=== PATIENT | female | born 1995 | race Caucasian/White ===

== ENCOUNTER → 2023-06-21 16:29 | Outpatient (CLI) | payer OTHER, SELFPAY ==
[2023-06-21 17:41] LABS: Add Manual Diff / Slide Review NO; Basophils Absolute Auto 0 /uL (0-100); Basophils Percent Auto 0.4 % (0-2); Eosinophils Absolute Auto 100 /uL (0-450); Eosinophils Percent Auto 0.7 % (2-4); Hematocrit 34.7 % (36-46); Lymphocytes Absolute Auto 1100 /uL (1100-4500); Lymphocytes Percent Auto 9.5 % (25-40); Mean Corpuscular HGB Conc 34.6 % (30-36); Mean Corpuscular Hemoglobin 33.5 PG (26-34); Mean Corpuscular Volume 96.9 fL (80-100); Monocytes Absolute Auto 600 /uL (0-900); Monocytes Percent Auto 5.5 % (3-14); Neutrophils Absolute Auto 9900 /uL (1500-7000); Neutrophils Percent Auto 83.9 % (50-75); Platelet Count 256 X10^3/uL (150-400); Red Blood Cell Count 3.59 X10^6/uL (4.0-5.2); White Blood Cell Count 11.8 X10^3/uL (4.5-11.0)
[2023-06-21 18:33] LABS: Hepatitis B Surface Antigen NEGATIVE s/c (NEGATIVE)
[2023-06-21 18:50] LABS: HIV 1 & 2 Ab/Ag 4th Gen Combo NEGATIVE (NEGATIVE); Hep C Virus Ab w/Reflex Quant NEGATIVE s/c (NEGATIVE)
[2023-06-22 06:44] LABS: RPR Screen Non Reactive (Non Reactive)
[2023-06-22 10:04] LABS: Varicella IgG Antibody 1944 index (Immune >165)
== END ==
PROVIDERS: Obstetrics & Gynecology; Referring Provider Specialist; Visit Provider Specialist
DX: Z34.01 Encounter for supervision of normal first pregnancy, first trimester (principal)
CPT/HCPCS: 36415; 80055; 86787; 86803; 86850; 86900; 86901; 87389

== ENCOUNTER → 2023-08-10 14:54 | Outpatient (CLI) | payer OTHER, SELFPAY ==
[2023-08-14 19:54] LABS: AFP Value 42.5 ng/mL (.); Gest Age on Col Date 18.7 weeks (.); Insulin Dep Diabetes No (.); OSBR Risk 1IN 10000 (.); Results Report (.); Test Results *Screen Negative* (.)
== END ==
PROVIDERS: PCP General Practice; Referring Provider Obstetrics & Gynecology; Visit Provider Obstetrics & Gynecology
DX: Z34.02 Encounter for supervision of normal first pregnancy, second trimester (principal); Z3A.18 18 weeks gestation of pregnancy
CPT/HCPCS: 36415; 82105

== ENCOUNTER → 2023-09-07 12:22 | Outpatient (CLI) | payer OTHER, SELFPAY ==
--- NOTE | 2023-09-07 12:23 | DI.US.S_ITS ---
PROCEDURE: US OB >= 14 WEEKS FETUS INDICATIONS: 20 week anatomy scan OUTSIDE/PRIOR DATING DATA: Last menstrual period (LMP): 04/01/2023. LMP-based estimated date of delivery (BENTLEY): 01/06/2024. First dating scan (date and location): 06/21/2023. Estimated date of delivery (BENTLEY) from first dating scan: 01/04/2023. The calculations are made using the clinical BENTLEY of 01/06/2024. TECHNIQUE: Real-time scanning was performed of the fetus, with image documentation and biometric measurements. COMPARISON: None. FINDINGS: General: A single living intrauterine gestation is present. Presentation: Breech. Placenta: Placental position is anterior, without previa. Amniotic fluid index: 14.3 cm, normal range is 5-24 cm. Single deepest vertical pocket is 4.2 cm. heart rate: 140 beats per minute. Maternal cervical canal: 5.7 cm long. Normal lower limit is 2.5 cm. biometrics: Biparietal diameter: 5.6 cm, 23 weeks 0 days Head circumference: 20.1 cm, 22 weeks 5 days Abdominal circumference: 18.3 cm, 23 weeks 1 day Femur length: 4.0 cm, 22 weeks 5 days Clinically estimated gestational age: 22 weeks 5 days Composite gestational age from present scan: 22 weeks 6 days Estimated weight and percentile: 548 g, 54th percentile Anatomic survey: Neuro: Ventricles are non-dilated at less than 10 mm. Cisterna magna is normal at 3-11 mm. Cerebellum is normal in size and morphology. Nuchal skin fold: Normal at less than 6 mm between 14-21 weeks gestational age. Face: Nose and lips, facial profile are normal. Spine: No evidence for spina bifida. Heart: 4-chambered heart is present, with normal ventricular outflow tracts. Diaphragm: Diaphragm is intact. Stomach: Left-sided stomach is present. Kidneys: No hydronephrosis. Normal is less than 5 mm in 2nd trimester, less than 7 mm in 3rd trimester. Cord: 3-vessel cord has orthotopic insertion. Bladder: Normal in size. Extremities: All 4 extremities identified. IMPRESSION: 1. Riley living intrauterine at 22 weeks 6 days based on today's ultrasound. Fetus is in the 54th percentile for weight. 2. Normal placenta and amniotic fluid. 3. Normal and complete anatomic survey. We strive to produce accurate, complete, and clear reports of imaging services. To assist us in improving patient care, this report was composed using standard report templates and voice recognition software. Therefore, it may contain abnormal punctuation, insertions and/or omissions. Occasional wrong-word or sound-alike substitutions may occur. Though we review the report and make efforts to correct it, we do recommend that the report be read carefully in proper context to recognize any text inaccuracies. Dictated by: Serjio Daniels M.D. on 09/07/2023 at 14:44 Approved by: Serjio Daniels M.D. on 09/07/2023 at 14:49
== END ==
PROVIDERS: PCP General Practice; Referring Provider Obstetrics & Gynecology; Visit Provider Obstetrics & Gynecology
DX: Z34.02 Encounter for supervision of normal first pregnancy, second trimester (principal); Z3A.22 22 weeks gestation of pregnancy
CPT/HCPCS: 76811

== ENCOUNTER → 2023-10-05 15:22 | Outpatient (CLI) | payer OTHER, SELFPAY ==
[2023-10-05 17:12] LABS: Hematocrit 34.6 % (36-46); Hemoglobin 12.1 g/dL (12.0-16.0)
[2023-10-05 17:38] LABS: GTT (PREG) 1 Hour PP 50gm Dose 141 mg/dL (76-139)
== END ==
PROVIDERS: PCP General Practice; Referring Provider Obstetrics & Gynecology; Visit Provider Obstetrics & Gynecology
DX: Z34.01 Encounter for supervision of normal first pregnancy, first trimester (principal); Z3A.26 26 weeks gestation of pregnancy
CPT/HCPCS: 36415; 82950; 85014; 85018

== ENCOUNTER → 2023-10-12 08:01 | Outpatient (CLI) | payer OTHER, SELFPAY ==
[2023-10-12 10:00] LABS: Glucose Fasting Gestational 71 mg/dL (76-95)
[2023-10-12 10:44] LABS: Glucose 1 Hour Gest 92 mg/dL (76-180)
[2023-10-12 11:53] LABS: Glucose 2 Hour Gest 102 mg/dL (76-155)
[2023-10-12 13:34] LABS: Glucose Tol Interp,Gestational INTERPRETATION
[2023-10-12 13:49] LABS: Glucose 3 Hour Gest 63 mg/dL (76-140)
== END ==
PROVIDERS: PCP General Practice; Referring Provider Obstetrics & Gynecology; Visit Provider Obstetrics & Gynecology
DX: Z34.02 Encounter for supervision of normal first pregnancy, second trimester (principal); R73.09 Other abnormal glucose
CPT/HCPCS: 36415; 82951; 82952

== ENCOUNTER → 2023-12-15 15:55 | Outpatient (CLI) | payer OTHER, SELFPAY ==
[2023-12-16 15:45] LABS: Strep Grp B PCR POS for Grp B Strep
== END ==
PROVIDERS: PCP General Practice; Visit Provider Obstetrics & Gynecology
DX: Z34.01 Encounter for supervision of normal first pregnancy, first trimester (principal); Z3A.36 36 weeks gestation of pregnancy
CPT/HCPCS: 87186; 87653

== ENCOUNTER 2024-01-06 09:38 | Outpatient (CLI) | payer OTHER, SELFPAY ==
--- NOTE | 2024-01-06 10:24 | PM.OBTRLD ---
Visit Information Visit Information Date of evaluation: 01/06/24 Primary OB Provider: Emperatriz Wilson Reason for Evaluation: Yes non-stress test non-stress test reason: other (40 weeks' gestation) [facility] Medical History (Updated 01/06/24 @ 10:25 by Emperatriz Wilson MD) Gastric ulcer (~2020) Gallstones (~2020) Surgical History (Updated 06/19/23 @ 21:57 by Kristine Smiht) Anesthesia [place] teeth extracted History of cholecystectomy (~2020) Family History (Updated 06/19/23 @ 21:59 by Kristine Smith) Grandfather Diabetes mellitus Hypertension Family/Other Arthritis Grandfather Respiratory disease Grandmother Diabetes mellitus Hyperlipidemia Hypertension Social History marital status: number of children: 0 household members: spouse lives independently: No caregiver/support person: No housing: house pets and animals: No education level: college (bachelor's degree) 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) current occupational exposures/hazards: No (all Hazmat duties stopped) special sabina needs: No travel history: recent (domestic only) seatbelt use: always helmet use: Yes water heater temp set < 120 deg: Yes working smoke detector in home: Yes fire extinguisher in home: Yes carbon monox detector in home: Yes firearms in home: Yes firearms unloaded and locked: Yes do you feel safe at home: Yes Smoking Status: Never smoker second hand exposure: No alcohol intake: former substance use type: does not use during the past year weight has: remained stable well-balanced diet: daily or most days daily servings fruits/ve or more times/day caffeine: Yes (1 cup coffee/tea in AM) Type(s) of exercise: walking, bicycling and running frequency: 5-6 times per week duration: 45-60 minutes/day Evaluation Evaluation Baseline heart rate: 130 Variability: Moderate (11-25) monitor accelerations: Present Monitor Decelerations: Absent Contraction Frequency (minutes): 0 Category of Tracing: Reactive Status: Category l Diagnosis, Plan/Disposition Final Diagnosis (1) Supervision of normal first in third trimester: Status: Acute (2) 40 weeks gestation of : Status: Acute Plan/Disposition Plan: Reactive nonstress test. Repeat nonstress test twice weekly. The patient has a follow-up appointment in 1 week in the office. OB Disposition: home
== END 2024-01-06 10:26 | disposition home or self-care (01) ==
LOC: LABOR 10:25 → OB 01-10 06:06
PROVIDERS: PCP General Practice; Referring Provider Specialist; Visit Provider Specialist
DX: O48.0 Post-term pregnancy (principal); Z3A.40 40 weeks gestation of pregnancy
CPT/HCPCS: 59025; G0378; G0379

== ENCOUNTER 2024-01-10 08:46 | Outpatient (CLI) | payer OTHER, SELFPAY | END 2024-01-10 09:40 | disposition home or self-care (01) | LOC: OB 01-12 08:15 | PROVIDERS: PCP General Practice; Referring Provider Specialist; Visit Provider Specialist | DX: O48.0 Post-term pregnancy (principal); Z3A.40 40 weeks gestation of pregnancy | CPT/HCPCS: 59025; G0378; G0379 ==

== ENCOUNTER 2024-01-13 09:09 | Outpatient (CLI) | payer OTHER, SELFPAY ==
--- NOTE | 2024-01-13 09:43 | PM.OBTRLD ---
Visit Information Visit Information Date of evaluation: 01/13/24 Primary OB Provider: Teagan Lozano On-call OB Provider: Emperatriz Wilson Reason for Evaluation: Yes non-stress test non-stress test reason: other (Postdates) Comments/Additional reasons for admission: 41 weeks [facility] Medical History (Updated 01/13/24 @ 09:45 by Emperatriz Wilson MD) Gastric ulcer (~2020) Gallstones (~2020) Surgical History (Updated 06/19/23 @ 21:57 by Kristine Smith) Anesthesia [place] teeth extracted History of cholecystectomy (~2020) Family History (Updated 06/19/23 @ 21:59 by Kristine Smith) Grandfather Diabetes mellitus Hypertension Family/Other Arthritis Grandfather Respiratory disease Grandmother Diabetes mellitus Hyperlipidemia Hypertension Social History marital status: number of children: 0 household members: spouse lives independently: No caregiver/support person: No housing: house pets and animals: No education level: college (bachelor's degree) 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) current occupational exposures/hazards: No (all Hazmat duties stopped) special sabina needs: No travel history: recent (domestic only) seatbelt use: always helmet use: Yes water heater temp set < 120 deg: Yes working smoke detector in home: Yes fire extinguisher in home: Yes carbon monox detector in home: Yes firearms in home: Yes firearms unloaded and locked: Yes do you feel safe at home: Yes Smoking Status: Never smoker second hand exposure: No alcohol intake: former substance use type: does not use during the past year weight has: remained stable well-balanced diet: daily or most days daily servings fruits/ve or more times/day caffeine: Yes (1 cup coffee/tea in AM) Type(s) of exercise: walking, bicycling and running frequency: 5-6 times per week duration: 45-60 minutes/day Evaluation Evaluation Baseline heart rate: 140 Variability: Moderate (11-25) monitor accelerations: Present Monitor Decelerations: Absent Contraction Frequency (minutes): 5 Uterine Contraction Intensity: Mild Category of Tracing: Reactive Status: Category l Diagnosis, Plan/Disposition Final Diagnosis (1) 41 weeks gestation of : Status: Acute Plan/Disposition Plan: Patient to come to the office for further evaluation. Scheduled for induction on 01/18 if not delivered. OB Disposition: home
== END 2024-01-13 09:47 | disposition home or self-care (01) ==
LOC: OB 01-17 09:29
PROVIDERS: PCP General Practice; Referring Provider Specialist; Visit Provider Specialist
DX: O48.0 Post-term pregnancy (principal); Z3A.41 41 weeks gestation of pregnancy
CPT/HCPCS: 59025; G0378; G0379

== ENCOUNTER 2024-01-18 01:08 | Inpatient (IN) | payer OTHER, SELFPAY ==
[2024-01-18 02:11] VITALS: BP 123/69
[2024-01-18] MEDS: LACTATED RINGERS 1,000 ML 100 ML IV (02:52)
[2024-01-18] MEDS: CEFAZOLIN VIAL 1 GM in SODIUM CHLORIDE 0.9% 100 ML IV (02:53)
[2024-01-18 03:01] LABS: Add Manual Diff / Slide Review NO; Basophils Absolute Auto 0 /uL (0-100); Basophils Percent Auto 0.3 % (0-2); Eosinophils Absolute Auto 0 /uL (0-450); Eosinophils Percent Auto 0.2 % (2-4); Hematocrit 37.7 % (36-46); Hemoglobin 13.1 g/dL (12.0-16.0); Lymphocytes Absolute Auto 900 /uL (1100-4500); Lymphocytes Percent Auto 6.6 % (25-40); Mean Corpuscular HGB Conc 34.7 % (30-36); Mean Corpuscular Hemoglobin 33.4 PG (26-34); Mean Corpuscular Volume 96.4 fL (80-100); Monocytes Absolute Auto 700 /uL (0-900); Monocytes Percent Auto 5.1 % (3-14); Neutrophils Absolute Auto 11400 /uL (1500-7000); Neutrophils Percent Auto 87.8 % (50-75); Platelet Count 212 X10^3/uL (150-400); Red Blood Cell Count 3.91 X10^6/uL (4.0-5.2)
--- NOTE | 2024-01-18 08:01 | P.HPOB_ITS ---
OB HPI Date/Time Date of admission: 01/18/24 Date Patient Seen: 01/18/24 Time Patient Seen: 07:00 History of Present Condition Chief complaint: LABOR : 1 Narrative: Mone Jj is a 28 year old female G1 at 41w5d D=1st trimester dating who presents to L&D in active late-term labor. Pt states onset of contractions approximately 1500 01/16. Denies VB, LOF, dysuria. RN DAISYE 5/C/-2, known GBS+. Patient had regular PNC throughout , low-risk genetic screening, infectious serologies negative, elevated 1h OGTT with subsequent normal 3h. History of Present care: good care Dating criteria: LMP confirmed by 1st trimester US Ultrasounds: normal mid trimester US Obstetrical complications: none Medical complications: none Preadmission Labs Blood type: A (+) positive -: Antibody screen: negative, Cystic fibrosis screen: unknown, GBS status: unknown, HBsAG: negative, HIV: negative, HSV 1: unknown, HSV 2: unknown and RPR/VDLR: negative -: Chlamydia screen: not detected and Gonorrhea screen: not detected -: Rubella: immune and Varicella: immune PAP: Normal Quad screen: Normal Cell-free DNA: not done 1 hr GTT: 141 Evaluation Evaluation Baseline heart rate: 140 Variability: Average (6-10) monitor accelerations: Present Monitor Decelerations: Absent Contraction Frequency (minutes): 5 Uterine Contraction Intensity: Moderate Category of Tracing: Reactive Status: Category l Dilation (cm): 5 Effacement (%): 100 Dilation: >/=5 cm Effacement: >/=80% station: -2 Position of cervix: mid Consistency: soft Medina score: 10 [facility] Medical History (Updated 01/13/24 @ 09:45 by Emperatriz Wilson MD) Gastric ulcer (~2020) Gallstones (~2020) Surgical History (Updated 06/19/23 @ 21:57 by Kristine Smith) Anesthesia [place] teeth extracted History of cholecystectomy (~2020) Family History (Updated 06/19/23 @ 21:59 by Kristine Smith) Grandfather Diabetes mellitus Hypertension Family/Other Arthritis Grandfather Respiratory disease Grandmother Diabetes mellitus Hyperlipidemia Hypertension Social History marital status: number of children: 0 household members: spouse lives independently: No caregiver/support person: No housing: house pets and animals: No education level: college (bachelor's degree) 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) current occupational exposures/hazards: No (all Hazmat duties stopped) special sabina needs: No travel history: recent (domestic only) seatbelt use: always helmet use: Yes water heater temp set < 120 deg: Yes working smoke detector in home: Yes fire extinguisher in home: Yes carbon monox detector in home: Yes firearms in home: Yes firearms unloaded and locked: Yes do you feel safe at home: Yes Smoking Status: Never smoker second hand exposure: No alcohol intake: former substance use type: does not use during the past year weight has: remained stable well-balanced diet: daily or most days daily servings fruits/ve or more times/day caffeine: Yes (1 cup coffee/tea in AM) Type(s) of exercise: walking, bicycling and running frequency: 5-6 times per week duration: 45-60 minutes/day Meds Home Medications and Allergies Home Medications Medication Instructions Recorded Confirmed Type vitamin-ferrous sulfate See Rx Instructions .Route .COMPLEX 06/11/23 01/18/24 History 27 mg iron-folic acid 0.8 mg tablet Double Electric Breast Pump See Rx Instructions .Route 09/07/23 01/18/24 Rx .COMPLEX #1 ea Allergies Allergy/AdvReac Type Severity Reaction Status Date / Time Penicillins Allergy Intermediate Hives Verified 01/13/24 10:07 Review of Systems Review of Systems ROS: Yes All systems reviewed with the patient and are negative except as otherwise documented OB Exam Vital signs Blood Pressure: 123/69 Pulse Rate: 78 Respiratory Rate: 16 Temperature: 35.9 F Narrative Exam Narrative: Pt resting on birthing ball, hands and knees position; breathing through contractions, coping well HENMT Head: normal to inspection Resp Effort & Inspection: normal respiratory effort Cardio Rate: regular rate Rhythm: regular rhythm Extremities Lower extremity: Yes normal to inspection GI Inspection: normal to inspection Other: gravid abdomen Other: melody cephalic, 7.5-8# SVE deferred in shared decision making with patient Objective Labs 01/18/24 02:35 Labs: Laboratory Results - last 24 hr 01/18/24 02:35 WBC 13.0 H RBC 3.91 L Hgb 13.1 Hct 37.7 MCV 96.4 MCH 33.4 MCHC 34.7 RDW 13.0 Plt Count 212 Neut % (Auto) 87.8 H Lymph % (Auto) 6.6 L [place] % (Auto) 5.1 Eos % (Auto) 0.2 L Baso % (Auto) 0.3 Neut # (Auto) 09221 H Lymph # (Auto) 900 L [place] # (Auto) 700 Eos # (Auto) 0 Baso # (Auto) 0 Blood Type A Positive Antibody Screen Negative Assessment and Plan Assessment and Plan Assessment and Plan narrative: 28yo G1 at 41w5d D=1st trimester dating, advanced latent late-term labor Advanced latent labor at late term Cat 1 tracing, maternal VSS/afebrile CBC, T&S on admission GBS+, known PCN allergy (per pt severe hives in infancy) > clinda-resistant per culture sensitivities Pt initially received single dose IV ancef 1g on admission, transitioned this AM to vancomycin for GBS ppx per ACOG guidelines given severity of historical allergy No adverse side effects from single dose ancef Plan interval SVE 2h, anticipate further augmentation with pitocin at that time if no interval change PNL reviewed, noted elevated 1h OGTT with normal 3h OGTT, higher risk LGA in setting of late term gestation; remainder wnl Ok for intermittent monitoring prior to augmentation, CEFM thereafter per protocol Anticipate Patient is consented for vaginal, vaginal operative and delivery. She additionally consents to transfusion of blood products in [facility] of hemorrhagic emergency. Time Spent with Patient Total time spent with greater than 50% in coordination of care (as documented) at patient's floor/unit and/or counseling patient:: 15-24 minutes
[2024-01-18 09:14] VITALS: BP 123/69; PULSE 78; RESP 16; TEMP 2.2; TEMP 35.9
--- NOTE | 2024-01-18 10:02 | PM.OBPNLAB ---
Date/Time Date Patient Seen: 01/18/24 Time Patient Seen: 10:02 Pain Control Pain control: tolerating well Pelvic Exam Dilation (cm): 6 (per RN exam) Effacement (%): 100 station: -2 Amniotic membrane status: Intact Contractions Contractions on admission: irregular Contraction pattern: Irregular Contraction intensity: Moderate Status status: Category l Heart Rate Baseline: 130 Monitor Accelerations: Present Monitor Decelerations: Absent Monitor Variability: Moderate Assessment and Plan Assessment: active labor Plan: begin patient augmentation Comments: 28yo at 41+5wks admitted in labor, with minimal progress overnight. Discussed with pt starting pitocin for augmentation, which pt is amenable to. -will start pitocin at this time -pt desires to go without pain management, coping well thus far -anticipate
[2024-01-18] MEDS: VANCOMYCIN 1,250 MG in SODIUM CHLORIDE 0.9% 250 ML 250 MG IV ×2 (10:27→18:38)
[2024-01-18] MEDS: OXYTOCIN PREMIX 30 UNIT/500 ML PLAST..BAG IV (10:27)
[2024-01-18 12:54] LABS: Estimated Glomerular Filt Rate > 60 mL/min (>60)
--- NOTE | 2024-01-18 14:32 | PM.OBPNLAB ---
Date/Time Date Patient Seen: 01/18/24 Time Patient Seen: 14:32 Pain Control Pain control: tolerating well Pelvic Exam Dilation (cm): 6 Effacement (%): 80 station: 0 Amniotic membrane status: Ruptured Contractions Contraction pattern: Irregular Contraction intensity: Moderate Status status: Category ll Heart Rate Baseline: 130 Monitor Accelerations: Present Monitor Decelerations: Episodic and Late Monitor Variability: Moderate Assessment and Plan Assessment: active labor Plan: begin patient augmentation Comments: 28yo at 41+5wks undergoing labor management. Pt SROM'd at 1230, and was assessed by RN as 8/100/0, at which time the pitocin was stopped. I was then called and told the patient was anterior lip with an urge to push, thus went to assess the patient. Per my exam above, pt is still 6cm dilated, 80% effaced, zero station. -will restart pitocin at this time, and titrate to effect -repeat SVE in 2hrs from pitocin start; if unchanged, would recommend IUPC placement
--- NOTE | 2024-01-18 15:45 | PM.AN.REGBLK ---
[facility] <Kim Quiñones MD - Last Filed: 01/18/24 15:49> Pre-procedure Procedure: Continuous Lumbar Epidural for L&D Attending OB provider: Sulema London PMH/PROSPER narrative: 40 wk in active labor requesting labor analgesia. ASA Class: II Labs: Hct 37.7 % (36-46) 01/18/24 02:35 Plt Count 212 X10^3/uL (150-400) 01/18/24 02:35 Medications: Current Medications Generic Name Dose Route Start Last Admin Trade Name Freq PRN Reason Stop Dose Admin Calcium Carbonate 1,000 mg 01/18/24 02:11 Calcium Carbonate 500 Mg Tab PO Q4HR PRN Dyspepsia Carboprost Tromethamine 250 mcg 01/18/24 02:12 Carboprost 250 Mcg/Ml Ampul IM Q90M PRN Bleeding Diphenhydramine HCl 25 mg 01/18/24 15:45 Diphenhydramine 50 Mg/Ml Vial IV 01/19/24 15:46 Q30MIN HARIKA Fentanyl 100 mcg 01/18/24 02:11 Fentanyl 100 Mcg/2 Ml Inj IV Q1H PRN Pain, Severe (7-10) Tranexamic Acid 1,000 mg/ 100 mls @ 200 mls/hr 01/18/24 02:12 Sodium Chloride IV NOW PRN Bleeding Lactated Ringer's 1,000 mls @ 100 mls/hr 01/18/24 02:15 01/18/24 02:52 Lactated Ringers IV 100 mls/hr CONT HARIKA Administration Oxytocin/Lactated Ringer's 30 unit in 500 mls @ 200 mls/hr 01/18/24 02:12 Oxytocin Premix IV CONT PRN Bleeding Protocol Oxytocin/Lactated Ringer's 30 unit in 500 mls @ 2 mls/hr 01/18/24 10:00 01/18/24 10:27 Oxytocin Premix IV 2 milliunit/min TITRATE HARIKA 2 mls/hr Administration Protocol 2 MILLIUNIT/MIN Vancomycin HCl 1,250 mg/ 250 mls @ 250 mls/hr 01/18/24 18:00 Sodium Chloride IV Q8H HARIKA Sodium Chloride 1,000 mls @ 100 mls/hr 01/18/24 15:45 Normal Saline 0.9% IV 01/19/24 15:42 CONT HARIKA Lidocaine HCl 20 ml 01/18/24 02:11 Lidocaine 1% 20 Ml INJ INTRA-OP PRN Post Delivery Methylergonovine Maleate 0.2 mg 01/18/24 02:12 Methylergonovine 0.2 Mg/Ml Vial IM NOW PRN Bleeding Methylergonovine Maleate 0.2 mg 01/18/24 02:12 Methylergonovine 0.2 Mg Tablet PO Q6HR PRN Heavy Bleeding Metoclopramide HCl 10 mg 01/18/24 15:45 Metoclopramide 10 Mg/2 Ml Inj IV 01/19/24 15:46 Q30MIN REPLACED BY [facility] Misoprostol 400 mcg 01/18/24 02:12 Misoprostol 200 Mcg Tablet SL NOW PRN Bleeding Misoprostol 800 mcg 01/18/24 02:12 Misoprostol 200 Mcg Tablet ID NOW PRN Bleeding Nalbuphine HCl 5 mg 01/18/24 15:41 Nalbuphine 20 Mg/Ml Ampul IV Q6H PRN Pruritus Naloxone HCl 0.2 mg 01/18/24 02:12 Naloxone 0.4 Mg/Ml Vial IV Q2MIN PRN Opiate Reversal Naloxone HCl 0.4 mg 01/18/24 15:41 Naloxone 0.4 Mg/Ml Vial IV Q2MIN PRN Opiate Reversal Naloxone HCl 0.1 mg 01/18/24 15:41 Naloxone 0.4 Mg/Ml Vial IV 01/18/24 15:42 NOW ONE Naloxone HCl 0.1 mg 01/18/24 15:41 Naloxone 0.4 Mg/Ml Vial IV 01/18/24 15:42 NOW ONE Ondansetron HCl 4 mg 01/18/24 02:12 Ondansetron 4 Mg/2 Ml Inj IV Q4HR PRN Nausea And Vomiting Ondansetron HCl 4 mg 01/18/24 17:00 Ondansetron 4 Mg/2 Ml Inj IV 01/18/24 21:01 Q4HR REPLACED BY [facility] Oxytocin 10 unit 01/18/24 02:12 Oxytocin 10 Unit/Ml Vial IM NOW PRN Bleeding Vancomycin HCl 1 request 01/18/24 07:56 Vancomycin Per Pharmacy MISC NOW PRN Labor Induction Vancomycin HCl 1 request 01/19/24 09:30 Vancomycin Trough MISC 01/19/24 09:31 NOW ONE Allergies: Allergies Allergy/AdvReac Type Severity Reaction Status Date / Time Penicillins Allergy Intermediate Hives Verified 01/13/24 10:07 Procedure Insertion date: 01/18/24 Insertion time: 15:26 Prep/Local: 1% lidocaine (chloroprep) Interspace: L4-5 Patient position: sitting Needle: 18 gauge Hustead Loss of resistance with: saline ROSE at (cm): 5 Catheter placed at SKIN (cm): 9 Catheter in SPACE (cm): 4 Insertion: No CSF, No Blood, No Paresthesia with insertion, No Paresthesia with injection and No Test dose reaction Initial Medications TEST DOSE time: 15:27 BOLUS DOSE time: 15:32 BOLUS DOSE (mL): 10 BOLUS DOSE med: 0.125% bupivacaine with fentanyl 10 mcg/mL Infusion Initial rate (mL/hr): 10 Post-procedure Anesthesia date START: 01/18/24 Anesthesia time START: 15:25 <Arleth Emery CRNA - Last Filed: 01/19/24 08:19> Infusion Subsequent interventions: Per Dr. Quiñones, pt had ineffective relief with a bolus dose of 10cc 2% lido. In room at 1603 for ineffective epidural. Pt states 8/10 pain during contractions. Patient hemodynamically stable. Pump stopped. Catheter was removed with tip intact. Chloraprep to skin. Lido 1% (2.5mL) at approx L2/L3 interspace @ 1611. Clear ROSE @ 6.5cm. Test dose of 3cc 1.5% lido w/ 1/200k epi @ 1630. No increase in maternal HR after 3 minutes. Additional 2mL of test dose given, followed by 8mL infusate bolus. Pumped turned back on as per original settings @ 1635. Patient states very comfortable with pain 1/10 during contractions @ 1700. -Arleth Emery CRNA Post-procedure Anesthesia date END: 01/19/24 Anesthesia time END: 02:41 Post-procedure Anesthesia Assessment: Yes CV function: HR/BP stable, Yes Resp function: RR/sat/airway adequate, Yes Post-op hydration adequate, Yes Pain control adequate, Yes Nausea & vomiting absent, Yes Temperature > 36 C and Yes Mental status appropriate
[2024-01-18] MEDS: FENT 2MCG/ML BUPIV 0.125% EPI 200 MCG/100 ML PLAST..BAG 6 MCG EPIDURAL (21:25)
--- NOTE | 2024-01-18 21:45 | PM.OBPNLAB ---
Date/Time Date Patient Seen: 01/18/24 Time Patient Seen: 21:45 Pain Control Pain control: epidural Pelvic Exam Dilation (cm): 10 Effacement (%): 100 station: +1 Amniotic membrane status: Ruptured Contractions Pitocin rate (mU/min): 6 Contraction pattern: Regular Contraction intensity: Moderate Status status: Category ll Heart Rate Baseline: 140 Monitor Accelerations: Present Monitor Decelerations: Episodic and Late Monitor Variability: Moderate Assessment and Plan Assessment: active labor Plan: continuous present management Comments: 28yo at 41+5wks now completely dilated. Will start pushing efforts at this time. Anticipate .
--- NOTE | 2024-01-19 03:08 | PM.OBPRVD ---
Events: Labor Augmentation Labor & Delivery Delivery date: 01/19/24 Intrapartal Events: Prolonged 2nd Stage > 2.5 hours Delivery augmentation: pitocin Delivery monitor: external FHT and external uterine Route of delivery: vacuum extraction Indication for instrumentation: maternal exhaustion (& prolonged 2nd stage) L&D Laceration Description: Perineal - 3rd Degree (3A) Delivery repair: vicryl Estimated blood loss (mL): 500 Anesthesia Type: Epidural Complications: none Narrative: The patient progressed to C/C/+1 with pitocin augmentation and epidural anesthesia. After approximately 4.5 hours of maternal pushing efforts the infant was noted to be in the direct OA position at +3 station. HR showed moderate variability throughout this process. Due to maternal exhaustion and prolonged 2nd stage, the patient was counseled and consented for vacuum assisted delivery. Anesthesia was noted to be adequate, and the bladder was drained with a straight cath. The [place] vacuum was placed without difficulty and checks confirmed appropriate placement with no maternal tissue involved. With the next contraction, the vacuum was activated to the green section of the pressure scale, and with a single expulsive effort, the head was delivered to , after which the vacuum was released, followed by delivery of the vertex in OA position and restituted LOT. The anterior shoulder delivered with gentle downward pressure. The posterior shoulder and rest of body delivered with ease. The infant was placed on maternal abdomen, and the cord was doubly clamped and cut after a 60sec delay as the was vigorous. The placenta delivered spontaneously and was intact with a 3-vessel cord. The fundus was noted to be firm with bimanual massage and pitocin. There were no pop offs of the vacuum during delivery. Inspection of the cervix, vagina, and perineum was notable for a 3A perineal laceration. Given that she had been on vancomycin during labor, no additional antibiotics were given. Repair was performed using 2-0 Vicryl in simple interrupted sutures to reinforce the capsule of the external anal sphincter. Repair of the remaining 2nd degree tear was performed with 3-0 Vicryl in a running, unlocked fashion. Skin was reapproximated in a running, subcuticular fashion. At the end of the repair, all tissues noted to be hemostatic. All sponges were removed from the vagina. The patient tolerated delivery well and remained in the labor room with the at the bedside. The infant was inspected and noted to have normal caput without excess swelling or bruising from the vacuum. Baby 1: gender: Female Presentation: vertex Position: Left Occiput Anterior Placenta delivery description: Spontaneous Cord Vessel Description: 3 Vessels score (1 min): 7 score (5 min): 9 weight: 7 lb 11 oz Plan for aftercare: Routine care
[2024-01-19] MEDS: DERMOPLAST SPRAY 20% 60 ML 1 SPRAY TOP (08:20)
[2024-01-19] MEDS: ACETAMINOPHEN 325 MG TABLET 650 MG PO ×3 (08:20→21:44)
--- NOTE | 2024-01-19 17:40 | PM.OBPN.1 ---
Subjective - OB Subjective Patient comments: no complaints, pain well controlled and tolerating diet baby status: doing well and nursing well feeding status: exclusively breast feeding Date Patient Seen: 01/19/24 Time Patient Seen: 13:30 Interval history: day 0 status post spontaneous vaginal delivery after prolonged second stage and a third-degree tear. going well. Pain well controlled. Bleeding tapering. Patient had some urinary retention. This decreased as her epidural wore off. Her postvoid residuals decreased. She is voiding normally now with minimal postvoid residual. Exam Narrative Exam Narrative: Generally: Patient is sitting up in bed, holding , no acute distress Fundus: Firm at U -1 Extremities: 1+ edema, negative [place] Objective Labs 01/18/24 02:35 01/18/24 12:00 Assessment & Plan Plan day: 0 plan OB: routine care Comments: Continue to void every 2-1/2-3 hours Expect discharge January 20, 2024 Time Spent With Patient Time: Total time spent is greater than 50% in coordination of care (as documented) at patient's floor/unit and/or counseling patient: Time with patient: 15-24 minutes
[2024-01-19] MEDS: DOCUSATE 100 MG CAPSULE PO (21:44)
[2024-01-20] MEDS: IBUPROFEN 600 MG TABLET PO ×2 (03:42→09:30)
[2024-01-20] MEDS: ACETAMINOPHEN 325 MG TABLET 650 MG PO ×2 (03:43→09:31)
[2024-01-20] MEDS: PRENATAL VIT,CALC/IRON/FOLIC 1 TABLET 1 TAB PO (08:06)
[2024-01-20] MEDS: DOCUSATE 100 MG CAPSULE PO (08:06)
[2024-01-20] MEDS: polyethylene glycoL 3350 17 GM POWD.PACK PO (08:07)
[2024-01-20 09:24] VITALS: BP 128/69; PULSE 85; RESP 16; TEMP 36.9
[2024-01-20 14:09] VITALS: BP 128/69; PULSE 85; RESP 16; TEMP 36.9
--- NOTE | 2024-02-06 20:34 | PM.OBDS.1 ---
Discharge Providers Provider Date of admission: 01/18/24 01:08 Discharge Date: 01/20/24 Primary care physician: Moody Wahl MD Consults: 01/18/24 02:11 Consult to Anesthesiology Urgent Comment: Consulting Provider: Anesthesiologist Reason for consultation: Epidural Has provider been notified: No 01/20/24 03:17 Consult to T[employer] Routine Comment: Discharge provider: Teagan Lozano MD Summary Hospital Course Date Patient Seen: 01/20/24 Time Patient Seen: 07:30 Diagnoses: 41+5 weeks gestation Prolonged second stage of labor Vacuum assisted vaginal delivery Third degree perineal laceration Hospital Course: Patient is a 28 year old who presented on 01/18/24 in active labor. She received an epidural for pain management. She progressed slowly to the second stage of labor. She had a prolonged second stage. She had a vacuum assisted vaginal delivery with a third degree laceration repair. Her course was unremarkable and she was discharged to home on 01/20/24. Peripartum Data Infant Delivery Method: Assisted Delivery Laceration Description: Perineal - 3rd Degree Episiotomy description: None Procedures: Epidural analgesia Vacuum assisted vaginal delivery Third degree laceration repair complications: none [place] 1: Gender: Female Disposition of : home Status at Discharge Cognitive/behavioral status at discharge: oriented Functional status at discharge: independent ambulation Overall status at discharge: patient is progressing back to baseline Time Spent with Patient Time attestation: Total time spent providing and/or coordinating discharge services: Time spent: Less than 30 minutes Objective Labs 01/18/24 02:35 01/18/24 12:00 Exam Narrative Exam Narrative: Gen: NAD Fundus: Firm U/-1 Ext: Trace edema, negative [facility] Discharge Plan Discharge Plan Patient Disposition: Home Provider Discharge Comment: Call with fever, chills, or bleeding vaginally more than a pad in an hour Call with swelling, tenderness, or red streak in the leg Ibuprofen 600 mg every 6 hours as needed for cramping Tylenol 650 mg every 6 hours as needed Discharge orders & Medications Prescriptions: Continued Double Electric Breast Pump See Rx Instructions .ROUTE .COMPLEX Qty: 1 0RF Rx Instructions: Pump and supplies vit-ferrous sulfat-FA 27 mg iron- 0.8 mg tablet See Rx Instructions .ROUTE .COMPLEX Rx Instructions: Take as directed Follow up/Referrals: Teagan Lozano MD [Physician] - (6 week post follow up with Dr. Lozano on 03/01/2024 @ 1415) Diet/Activity/Treatments Diet: Diet as Tolerated Activity: Nothing in the vagina for 6 weeks No lunging or squatting Skin/Wound/Dressing Care Report to your healthcare provider any signs of infection, such as:: chills, fever, increased pain and unusual drainage Visit Report/Discharge Packet Instructions: DI for Labor and Delivery, Vaginal Stand Alone Forms: Discharge: Care, Patient Portal/API, Stroke Signs & Symptoms Discharge Data Primary Care Provider: Moody Wahl
== END 2024-01-20 14:34 | disposition home or self-care (01) | DRG 768 ==
PROVIDERS: Pharmacist Pharmacist Clinician (PhC)/ Clinical Pharmacy Specialist; Specialist; Admitting Provider Obstetrics & Gynecology; PCP General Practice; Referring Provider Obstetrics & Gynecology; Visit Provider Obstetrics & Gynecology
DX: O48.0 Post-term pregnancy (principal); Z37.0 Single live birth; O70.21 Third degree perineal laceration during delivery, IIIa; O63.1 Prolonged second stage (of labor); O99.824 Streptococcus B carrier state complicating childbirth; Z3A.41 41 weeks gestation of pregnancy; O75.81 Maternal exhaustion complicating labor and delivery
CPT/HCPCS: 36415; 59050; 59400; 59409; 82565; 85025; 86850; 86900; 86901; G0379; J0690; J2590